=== PATIENT | female | born 1965 | race Hispanic/Latino ===

== ENCOUNTER 2017-11-04 19:18 | Inpatient (IN) | payer OTHER ==
[~2017-11-04] VITALS: Ht 142.2 cm; Wt 39.0 kg
[~2017-11-04 19:18] MED LIST: BACLOFEN10 MG PO; CITRACAL + D C1 EACH PO; DICLOFENAC SOD100 MG PO; FOLIC ACID1 MG PO; LOMOTIL TABLET1 EACH PO; METRONIDAZOLE500 MG PO; MULTIVITAMIN1 EAC2 PO; NATURAL BALANCE15 ML BOTH EYES; OMEPRAZOLE40 M1 PO; RAYOS5 MG PO; SYNTHROID88 MCG PO; TYLENOL EXTRA500 MG PO; VITAMIN C100 MG PO; VITAMIN D1000 INTUN PO
[2017-11-04 19:45] LABS: HEMATOCRIT 37.3 % (36.0-46.0); HEMOGLOBIN 12.5 G/DL (11.9-15.5); MCH 29.4 PG (29.0-34.0); MCHC 33.5 G/DL (30.0-36.0); MCV 87.8 FL (83-99); PLATELET COUNT 316 K/uL (156-360); RBC DIS.WIDTH-CV 14.6 % (11.8-14.6); RBC DIS.WIDTH-SD 46.5 % (39-53); RED BLOOD COUNT 4.25 M/uL (3.80-5.20); WHITE BLOOD COUNT 8.5 K/uL (4.1-10.2)
[2017-11-04 20:10] LABS: ALBUMIN 4.4 g/dL (3.2-4.8); CHLORIDE 106 mEq/L (99-109); POTASSIUM 4.1 mEq/L (3.7-5.4); SODIUM 139 mEq/L (136-147)
[2017-11-04 20:12] LABS: GLUCOSE 101 mg/dL (70-99)
[2017-11-04 20:13] LABS: TOTAL PROTEIN 9.7 g/dL (6.4-8.3)
[2017-11-04 20:16] LABS: ALKALINE PHOSPHATASE 73 IU/L (3-129); CREATININE 0.8 mg/dL (0.6-1.3); GFR ESTIMATE (CALCULATED) > 59 mL/min/
[2017-11-04 20:17] LABS: UREA NITROGEN (BUN) 17 mg/dL (9-23)
[2017-11-04 20:18] LABS: AST (GOT) 37 IU/L (2-34)
[2017-11-04 20:19] LABS: ALT (GPT) 28 IU/L (3-49)
[2017-11-04 20:25] LABS: QUANTITATIVE HCG < 4.0 MIU/ML
[2017-11-04 22:58] LABS: APPEARANCE CLEAR ((CLEAR)); BILIRUBIN NEGATIVE; BLOOD NEGATIVE; COLOR YELLOW ((YELLOW)); GLUCOSE (STRIP) NEGATIVE; KETONES 5; LEUKOCYTES TRACE; NITRITE NEGATIVE; PROTEIN (STRIP) NEGATIVE; SPECIFIC GRAVITY 1.017 (1.000-1.030); UROBILINOGEN 0.2 MG/DL (0.2-1.0)
[2017-11-04 23:01] LABS: BACTERIA NONE SEEN /HPF; EPITHELIAL CELLS RARE /HPF; MUCUS NONE SEEN /LPF; RED BLOOD CELLS 0-5 /HPF (0-5); UCUL ADDED? NO; WHITE BLOOD CELLS 0-5 /HPF (0-5)
[2017-11-05 02:15] LABS: LIPASE 12 U/L (1.0-51.0)
[2017-11-05] MEDS ORDERED: HYDROCORTISONE5 MG PO (03:33)
[2017-11-05] MEDS ORDERED: LORATADINE10 M3 PO (03:34)
[2017-11-05] MEDS ORDERED: FLORINEF ACETA0.1 MG PO (03:34)
[2017-11-05] MEDS ORDERED: RASUVO 2020 MG/0.4 SC (03:35)
[2017-11-05] MEDS ORDERED: LEVOTHYROXINE88 MCG PO (03:35)
[2017-11-05] MEDS ORDERED: ORENCIA250 MG/10 IV (03:36)
[2017-11-05 04:45] VITALS: BP 97/52
[2017-11-05 05:10] LABS: C-REACTIVE PROTEIN 23.7 MG/L (0-10)
[2017-11-05 07:27] LABS: ALBUMIN 2.9 G/DL (3.2-4.8); CHLORIDE 112 MEQ/L (99-109); DIRECT BILIRUBIN 0.1 mg/dL (0.0-0.3); POTASSIUM 3.6 MEQ/L (3.7-5.4); SODIUM 139 MEQ/L (136-147); TOTAL BILIRUBIN 0.6 MG/DL (0.0-1.0)
[2017-11-05 07:33] LABS: ALKALINE PHOSPHATASE 43 IU/L (3-129); ALT (GPT) 16 IU/L (3-49); AST (GOT) 19 IU/L (2-34); CREATININE 0.7 MG/DL (0.6-1.3); GFR ESTIMATE (CALCULATED) > 59 mL/min/; GLUCOSE 97 mg/dL (70-99); TOTAL PROTEIN 6.3 G/DL (6.4-8.3); UREA NITROGEN (BUN) 14 mg/dL (9-23)
[2017-11-05 08:41] VITALS: BP 102/55
[2017-11-05 11:53] VITALS: BP 109/57
[2017-11-05 16:39] VITALS: BP 130/64
[2017-11-05 21:00] VITALS: BP 105/65
[2017-11-05 23:57] VITALS: BP 104/69
[2017-11-06 04:00] VITALS: BP 133/78
[2017-11-06 05:39] LABS: BASOPHIL (%) 0 % (0-1); EOSINOPHIL (%) 0 % (0-5); HEMATOCRIT 27.8 % (36.0-46.0); HEMOGLOBIN 8.9 G/DL (11.9-15.5); IMMATURE GRANULOCYTE (%) 0.6 % (0.0-0.7); LYMPHOCYTE (%) 23.2 % (15-42); LYMPHOCYTE COUNT 1.1 K/uL (1.0-2.8); MCH 29.3 PG (29.0-34.0); MCV 91.4 FL (83-99); MONOCYTE (%) 6.4 % (3-12); MONOCYTE COUNT 0.3 K/uL (0-0.8); NEUTROPHIL (%) 69.8 % (45-76); NEUTROPHIL COUNT 3.4 K/uL (1.8-6.4); PLATELET COUNT 230 K/uL (156-360); RBC DIS.WIDTH-CV 15.3 % (11.8-14.6); RBC DIS.WIDTH-SD 51.4 % (39-53); RED BLOOD COUNT 3.04 M/uL (3.80-5.20); WHITE BLOOD COUNT 4.9 K/uL (4.1-10.2)
[2017-11-06 05:47] LABS: ALBUMIN 3.3 G/DL (3.2-4.8); ALKALINE PHOSPHATASE 43 IU/L (3-129); ALT (GPT) 13 IU/L (3-49); AST (GOT) 21 IU/L (2-34); CHLORIDE 112 MEQ/L (99-109); CREATININE 0.6 MG/DL (0.6-1.3); GFR ESTIMATE (CALCULATED) > 59 mL/min/; GLUCOSE 129 mg/dL (70-99); POTASSIUM 3.5 MEQ/L (3.7-5.4); SODIUM 141 MEQ/L (136-147); TOTAL PROTEIN 6.5 G/DL (6.4-8.3); UREA NITROGEN (BUN) 11 mg/dL (9-23)
[2017-11-06 05:48] LABS: TOTAL BILIRUBIN 0.4 MG/DL (0.0-1.0)
[2017-11-06 08:00] VITALS: BP 103/54
[2017-11-06 09:31] LABS: C DIFF TOXIN POSITIVE (NEGATIVE)
[2017-11-06] MEDS ORDERED: HYDROCORTISONE5 MG PO (10:08)
[2017-11-06] MEDS ORDERED: TYLENOL REGULA325 MG PO (10:13)
[2017-11-06] MEDS ORDERED: ESZOPICLONE2 MG PO (10:13)
[2017-11-06] MEDS ORDERED: NATURAL BALANCE15 M1 BOTH EYES (10:13)
[2017-11-06 12:38] VITALS: BP 129/60
[2017-11-06 19:56] VITALS: BP 117/56
[2017-11-07] VITALS (7 sets, daily range): BP systolic 105–136; BP diastolic 50–64
[2017-11-07 06:04] LABS: HEMATOCRIT 29.5 % (36.0-46.0); HEMOGLOBIN 9.3 G/DL (11.9-15.5); MCH 29.1 PG (29.0-34.0); MCHC 31.5 G/DL (30.0-36.0); MCV 92.2 FL (83-99); PLATELET COUNT 237 K/uL (156-360); RBC DIS.WIDTH-CV 15.6 % (11.8-14.6); WHITE BLOOD COUNT 13.3 K/uL (4.1-10.2)
[2017-11-07 06:25] LABS: ALBUMIN 2.9 G/DL (3.2-4.8); ALKALINE PHOSPHATASE 41 IU/L (3-129); ALT (GPT) 19 IU/L (3-49); AST (GOT) 27 IU/L (2-34); CHLORIDE 117 MEQ/L (99-109); CREATININE 0.6 MG/DL (0.6-1.3); GFR ESTIMATE (CALCULATED) > 59 mL/min/; POTASSIUM 3.3 MEQ/L (3.7-5.4); SODIUM 143 MEQ/L (136-147); TOTAL PROTEIN 6.1 G/DL (6.4-8.3); UREA NITROGEN (BUN) 14 mg/dL (9-23)
[2017-11-07 06:26] LABS: GLUCOSE 84 mg/dL (70-99); TOTAL BILIRUBIN 0.7 MG/DL (0.0-1.0)
[2017-11-07 08:48] LABS: TROP-I INTERPRETATION NEGATIVE; TROPONIN-I 0.02 ng/mL (0.0-0.30)
[2017-11-07 14:48] LABS: TROP-I INTERPRETATION NEGATIVE; TROPONIN-I 0.02 ng/mL (0.0-0.30)
[2017-11-08 00:22] VITALS: BP 115/56
[2017-11-08 03:54] VITALS: BP 140/68
[2017-11-08 06:53] LABS: HEMATOCRIT 28.6 % (36.0-46.0); HEMOGLOBIN 9.3 G/DL (11.9-15.5); MCH 29.2 PG (29.0-34.0); MCHC 32.5 G/DL (30.0-36.0); MCV 89.7 FL (83-99); PLATELET COUNT 267 K/uL (156-360); RBC DIS.WIDTH-CV 15.3 % (11.8-14.6); RBC DIS.WIDTH-SD 49.8 % (39-53); RED BLOOD COUNT 3.19 M/uL (3.80-5.20); WHITE BLOOD COUNT 11.3 K/uL (4.1-10.2)
[2017-11-08 07:16] LABS: ALBUMIN 2.7 G/DL (3.2-4.8); ALKALINE PHOSPHATASE 41 IU/L (3-129); ALT (GPT) 27 IU/L (3-49); AST (GOT) 39 IU/L (2-34); CHLORIDE 109 MEQ/L (99-109); CREATININE 0.6 MG/DL (0.6-1.3); GFR ESTIMATE (CALCULATED) > 59 mL/min/; GLUCOSE 76 mg/dL (70-99); POTASSIUM 3.2 MEQ/L (3.7-5.4); SODIUM 141 MEQ/L (136-147); TOTAL PROTEIN 5.9 G/DL (6.4-8.3); UREA NITROGEN (BUN) 10 mg/dL (9-23)
[2017-11-08 07:17] LABS: TOTAL BILIRUBIN 0.9 MG/DL (0.0-1.0)
[2017-11-08 08:15] VITALS: BP 120/80
[2017-11-08 16:16] VITALS: BP 120/70
[2017-11-08 20:23] VITALS: BP 139/63
[2017-11-09 00:07] VITALS: BP 144/62
[2017-11-09 04:35] VITALS: BP 144/65
[2017-11-09 06:21] LABS: HEMATOCRIT 33.1 % (36.0-46.0); HEMOGLOBIN 10.7 G/DL (11.9-15.5); MCH 28.5 PG (29.0-34.0); MCHC 32.3 G/DL (30.0-36.0); MCV 88.3 FL (83-99); PLATELET COUNT 311 K/uL (156-360); RBC DIS.WIDTH-CV 14.9 % (11.8-14.6); RBC DIS.WIDTH-SD 48.1 % (39-53); RED BLOOD COUNT 3.75 M/uL (3.80-5.20); WHITE BLOOD COUNT 8.5 K/uL (4.1-10.2)
[2017-11-09 06:57] LABS: CHLORIDE 103 MEQ/L (99-109); CREATININE 0.6 MG/DL (0.6-1.3); GFR ESTIMATE (CALCULATED) > 59 mL/min/; GLUCOSE 87 mg/dL (70-99); MAGNESIUM 1.6 mg/dl (1.3-2.7); POTASSIUM 3.5 MEQ/L (3.7-5.4); SODIUM 140 MEQ/L (136-147); UREA NITROGEN (BUN) 9 mg/dL (9-23)
[2017-11-09 08:02] VITALS: BP 112/58
[2017-11-09] MEDS ORDERED: FAMOTIDINE40 MG PO (08:14)
[2017-11-09] MEDS ORDERED: VANCOCIN HCL125 MG PO (08:14)
== END 2017-11-09 10:38 | disposition home or self-care (01) | DRG 872 ==
LOC: EME 19:18 → 3EAST 11-05 03:25 → EDOF 11-05 03:25 → ENRESERV 11-05 03:28 → 4EAST 11-05 04:42 → CANRESERV 11-06 10:37 → ENRESERV 11-06 10:37 → 3EAST 11-07 00:23
PROVIDERS: Hospitalist; Internal Medicine; Internal Medicine Gastroenterology
DX: A41.9 Sepsis, unspecified organism (principal); A04.72 Enterocolitis due to Clostridium difficile, not specified as recurrent; E87.2 Acidosis; E27.1 Primary adrenocortical insufficiency; K80.63 Calculus of gallbladder and bile duct with acute cholecystitis with obstruction; D64.9 Anemia, unspecified; E03.9 Hypothyroidism, unspecified; E83.51 Hypocalcemia; E87.6 Hypokalemia; E87.70 Fluid overload, unspecified; E87.8 Other disorders of electrolyte and fluid balance, not elsewhere classified; E88.09 Other disorders of plasma-protein metabolism, not elsewhere classified; M06.9 Rheumatoid arthritis, unspecified; I88.0 Nonspecific mesenteric lymphadenitis; K21.9 Gastro-esophageal reflux disease without esophagitis; K31.84 Gastroparesis; K57.30 Diverticulosis of large intestine without perforation or abscess without bleeding; M85.80 Other specified disorders of bone density and structure, unspecified site; Z96.641 Presence of right artificial hip joint; I95.9 Hypotension, unspecified; G47.00 Insomnia, unspecified; Z79.52 Long term (current) use of systemic steroids; Z87.442 Personal history of urinary calculi; Z83.3 Family history of diabetes mellitus
CPT/HCPCS: 71045; 71046; 74177; 74181; 76705; 80048; 80053; 80076; 81003; 82948; 83605; 83690; 83735; 84145 90; 84484; 84702; 85025; 85027; 86140; 87040; 87177; 87329; 87493; 87506; 93005; 94799; 99281; 99285; C1753; J0295; J1170; J1644; J1720; J1885; J1940; J1956; J2405; J3010; J7030; J7050; S0028; S0030

== ENCOUNTER → 2018-01-09 | Outpatient (CLI) | payer OTHER ==
[~2018-01-09] VITALS: Ht 142.2 cm; Wt 36.7 kg
[~2018-01-09] MED LIST changes: +BENTYL10 MG PO; +ESZOPICLONE2 MG PO; +FAMOTIDINE40 MG PO; +FLORINEF ACETA0.1 MG PO; +HYDROCORTISONE5 MG PO; +LEVOTHYROXINE88 MCG PO; +LORATADINE10 M3 PO; +NATURAL BALANCE15 M1 BOTH EYES; +ORENCIA250 MG/10 IV; +RASUVO 2020 MG/0.4 SC; +TYLENOL REGULA325 MG PO; +VANCOCIN HCL125 MG PO
== END | disposition home or self-care (01) ==
LOC: AMB 08:00
DX: K80.50 Calculus of bile duct without cholangitis or cholecystitis without obstruction (principal); K21.9 Gastro-esophageal reflux disease without esophagitis; M81.0 Age-related osteoporosis without current pathological fracture; M06.9 Rheumatoid arthritis, unspecified; Z79.899 Other long term (current) drug therapy; E27.40 Unspecified adrenocortical insufficiency; E03.9 Hypothyroidism, unspecified; D50.9 Iron deficiency anemia, unspecified; E73.9 Lactose intolerance, unspecified; E55.9 Vitamin D deficiency, unspecified; Z82.49 Family history of ischemic heart disease and other diseases of the circulatory system; Z83.3 Family history of diabetes mellitus
CPT/HCPCS: J1720; J2250; J2405; J3010